=== PATIENT | female | born 1980 | race Caucasian/White ===

== ENCOUNTER 2016-08-20 20:08 | Emergency (ER) | payer MEDICAID ==
[~2016-08-20] VITALS: Ht 170.2 cm; Wt 83.5 kg
[~2016-08-20 20:08] MED LIST: PREN1TAB27 PO
[2016-08-20 20:09] VITALS: BP 128/78
[2016-08-20] MEDS ORDERED: IBUPROFEN 200 MG TABLET ONE (20:56)
[2016-08-20] MEDS ORDERED: IBUPROFEN 200 MG TABLET PO ONE (21:00)
[2016-08-20] MEDS ORDERED: KETOROLAC 30 MG/1 ML IM ONE (21:00)
== END 2016-08-20 22:19 | disposition home or self-care (01) ==
LOC: ED 20:50
DX: M79.622 Pain in left upper arm (principal); M79.621 Pain in right upper arm; R20.9 Unspecified disturbances of skin sensation
CPT/HCPCS: 36415; 82962; 85025; 93005; 99285

== ENCOUNTER 2016-11-23 17:33 | Emergency (ER) | payer MEDICAID ==
[~2016-11-23] VITALS: Ht 170.2 cm; Wt 87.7 kg
[2016-11-23 17:34] VITALS: BP 117/75
== END 2016-11-23 18:55 | disposition home or self-care (01) ==
LOC: ED 18:49
DX: M77.9 Enthesopathy, unspecified (principal)
CPT/HCPCS: 99284

== ENCOUNTER 2017-03-17 06:41 | Emergency (ER) | payer MEDICAID ==
[~2017-03-17] VITALS: Ht 170.2 cm; Wt 87.7 kg
[2017-03-17 06:44] VITALS: BP 138/87
[2017-03-17 07:52] LABS: HEMATOCRIT 37.6 % (34.6-47.8); HEMOGLOBIN 12.5 g/dL (11.7-16.4); WHITE BLOOD COUNT 8.4 x10^3/uL (3.4-10)
[2017-03-17 08:04] LABS: BLOOD UREA NITROGEN 8 mg/dL (7-18)
== END 2017-03-17 09:30 | disposition home or self-care (01) ==
LOC: ED 07:43
DX: M19.031 Primary osteoarthritis, right wrist (principal); F17.210 Nicotine dependence, cigarettes, uncomplicated
CPT/HCPCS: 36415; 80048; 84550; 85025; 99285

== ENCOUNTER 2017-05-10 00:03 | Emergency (ER) | payer MEDICAID ==
[~2017-05-10] VITALS: Ht 170.2 cm; Wt 85.4 kg
[2017-05-10 01:32] LABS: BASOPHILS # (AUTO) 0.03 x10^3/uL (0-0.1); BASOPHILS % (AUTO) 1 % (0-1); EOSINOPHILS % (AUTO) 2 % (1-7); LYMPHOCYTES % (AUTO) 29 % (22-44); MD NO; MEAN CORPUSCULAR HEMOGLOBIN 26.2 pg (27.0-34.8); MEAN CORPUSCULAR HGB CONC 33.1 g/dL (32.4-35.8); MEAN CORPUSCULAR VOLUME 79.2 fL (80-100); MEAN PLATELET VOLUME 9.7 fL (7.4-10.4); MONOCYTES # (AUTO) 0.84 x10^3/uL (0.2-0.8); MONOCYTES % (AUTO) 15 % (2-9); NEUTROPHILS # (AUTO) 3.01 x10^3/uL (1.8-6.8); NEUTROPHILS % (AUTO) 54 % (42-75); PLATELET COUNT 176 x10^3/uL (130-400); RED BLOOD COUNT 4.46 x10^6/uL (3.82-5.3); RED CELL DISTRIBUTION WIDTH 16.6 % (9.6-15.2)
[2017-05-10 01:42] LABS: ALBUMIN 3.3 g/dL (3.4-5.0); ANION GAP 7 mmol/L (5-15); CALCIUM 8.3 mg/dL (8.5-10.1); CHLORIDE 110 mmol/L (98-107); CREATININE 0.95 mg/dL (0.55-1.02)
[2017-05-10 01:45] LABS: TROPONIN I < 0.015 ng/mL (0.000-0.045)
[2017-05-10 02:04] VITALS: BP 154/94
== END 2017-05-10 02:05 | disposition home or self-care (01) ==
LOC: ED 01:22
DX: J10.1 Influenza due to other identified influenza virus with other respiratory manifestations (principal); J40 Bronchitis, not specified as acute or chronic
CPT/HCPCS: 36415; 71046; 80048; 82040; 84484; 85025; 93005; 99285

== ENCOUNTER 2017-06-17 21:16 | Emergency (ER) | payer MEDICAID ==
[~2017-06-17] VITALS: Ht 170.2 cm; Wt 87.9 kg
[2017-06-17 21:19] VITALS: BP 139/82
[2017-06-17] MEDS ORDERED: HYDROcodone/APAP 5/325 TABLET PO ONE (21:57)
[2017-06-17] MEDS ORDERED: HYDROcodone/APAP 5/325 TABLET ONE (22:13)
== END 2017-06-18 00:02 | disposition home or self-care (01) ==
LOC: ED 22:27
DX: S62.015A Nondisplaced fracture of distal pole of navicular [scaphoid] bone of left wrist, initial encounter for closed fracture (principal); F17.210 Nicotine dependence, cigarettes, uncomplicated; W01.0XXA Fall on same level from slipping, tripping and stumbling without subsequent striking against object, initial encounter; Y93.89 Activity, other specified; Y92.098 Other place in other non-institutional residence as the place of occurrence of the external cause; Y99.8 Other external cause status
CPT/HCPCS: 29125; 99284

== ENCOUNTER 2017-12-13 04:49 | Emergency (ER) | payer MEDICAID ==
[~2017-12-13] VITALS: Ht 170.2 cm; Wt 86.6 kg
[2017-12-13 04:54] VITALS: BP 121/82
[2017-12-13] MEDS ORDERED: HYDROcodone/APAP 5/325 TABLET ONE (05:14)
[2017-12-13] MEDS ORDERED: HYDROcodone/APAP 5/325 TABLET PO ONE (05:30)
== END 2017-12-13 06:57 | disposition home or self-care (01) ==
LOC: ED 06:11
DX: M25.532 Pain in left wrist (principal)
CPT/HCPCS: 29125; 99284

== ENCOUNTER 2018-01-18 01:27 | Emergency (ER) | payer MEDICAID ==
[~2018-01-18] VITALS: Ht 170.2 cm; Wt 85.6 kg
[2018-01-18] MEDS ORDERED: METHOCARBAMOL 750 MG TABLET ONE (02:20)
[2018-01-18] MEDS ORDERED: KETOROLAC 30 MG/1 ML ONE (02:20)
[2018-01-18 02:25] VITALS: BP 118/66
[2018-01-18] MEDS ORDERED: KETOROLAC 30 MG/1 ML IM ONE (02:30)
[2018-01-18] MEDS ORDERED: METHOCARBAMOL 750 MG TABLET PO ONE (02:30)
== END 2018-01-18 03:02 | disposition home or self-care (01) ==
LOC: ED 01:43
DX: M25.511 Pain in right shoulder (principal); F17.200 Nicotine dependence, unspecified, uncomplicated
CPT/HCPCS: 73030; 96372; 99284; J1885

== ENCOUNTER 2018-09-11 22:41 | Emergency (ER) | payer MEDICAID ==
[~2018-09-11] VITALS: Ht 167.6 cm; Wt 88.2 kg
--- NOTE | 2018-09-11 22:54 | NUR ---
Pt ambulated to room with this RN. Pt requested bathroom, pt ambulated to bathroom, sample cup in hand. Education provided regarding properly obtaining clean catch urine sample.
--- NOTE | 2018-09-11 22:58 | NUR ---
Dr. Pastrana at bedside to evaluate pt. Pt states "I have really bad rheumatoid arthritis and it feels like my bones are going to break." Pt c/o pain to all joints that started this morning.
[2018-09-11] MEDS ORDERED: methotrexate PO (23:00)
[2018-09-11] MEDS ORDERED: levothyroxine PO (23:07)
[2018-09-11] MEDS ORDERED: KETOROLAC 30 MG/1 ML ONE (23:21)
[2018-09-11] MEDS ORDERED: ACETAMINOPHEN 500 MG TABLET ONE (23:21)
--- NOTE | 2018-09-11 23:27 | NUR ---
Pt medicated per MAR.
[2018-09-11] MEDS ORDERED: KETOROLAC 30 MG/1 ML IM ONE (23:30)
[2018-09-11] MEDS ORDERED: ACETAMINOPHEN 500 MG TABLET PO ONE (23:30)
--- NOTE | 2018-09-11 23:58 | NUR ---
Dr. Pastrana at bedside to discuss ED findings and POC.
--- NOTE | 2018-09-12 00:24 | NUR ---
Patient/Caregiver given discharge instructions and they have confirmed that they understand the instructions. Patient ambulatory with steady gait.
[2018-09-12 00:35] VITALS: BP 134/78
== END 2018-09-12 00:37 | disposition home or self-care (01) ==
LOC: ED 23:34
DX: M06.9 Rheumatoid arthritis, unspecified (principal); M25.512 Pain in left shoulder; M25.511 Pain in right shoulder; M25.522 Pain in left elbow; M25.521 Pain in right elbow
CPT/HCPCS: 96372; 99283; J1885

== ENCOUNTER 2019-06-13 09:39 | Emergency (ER) | payer MEDICAID ==
[~2019-06-13] VITALS: Ht 170.2 cm; Wt 84.0 kg
[~2019-06-13 09:39] MED LIST changes: +levothyroxine PO; +methotrexate PO
[2019-06-13 09:46] VITALS: BP 114/63
[2019-06-13] MEDS ORDERED: KETOROLAC 30 MG/1 ML ONE (10:10)
[2019-06-13] MEDS ORDERED: KETOROLAC 30 MG/1 ML IM ONE (10:30)
== END 2019-06-13 11:44 | disposition home or self-care (01) ==
LOC: ED 10:48
DX: M79.641 Pain in right hand (principal); M06.9 Rheumatoid arthritis, unspecified; F17.200 Nicotine dependence, unspecified, uncomplicated
CPT/HCPCS: 29125; 73130; 96372; 99283; J1885